=== PATIENT | female | born 1945 | race African-American/Black ===

== ENCOUNTER 2017-02-15 09:22 | Observation (INO) ==
[2017-02-15] MEDS ORDERED: BISACODYL 5 MG TABLET PO ONE (12:00)
[2017-02-15] MEDS ORDERED: ACETAMINOPHEN 325 MG TABLET PO PRN (12:21)
[2017-02-15] MEDS ORDERED: ONDANSETRON 4 MG/2 ML VIAL IV PRN (12:21)
[2017-02-15] MEDS ORDERED: MAGNESIUM HYDROXIDE SUSP 30 ML UDCUP PO PRN (12:21)
--- NOTE | 2017-02-15 12:35 | Gastrointestinal H&P ---
<Tanya Shoemaker - Last Filed: 02/15/17 12:29> Assessment and Plan (1) History of colon cancer Status: Acute Assessment and plan: 02/15-patient with complicated medical history now being admitted for observation and colonoscopy preop, further complicated by no assistance at home. Began colonoscopy prep and plan to proceed with colonoscopy tomorrow morning. Plan an addendum to follow by Dr. Thayer. Current Visit: Yes History of Present Illness Chief complaint: Colon cancer screening, history of colorectal cancer History of present illness: Ms. Dariusz Anthony is a 71 year old female who is being admitted to the hospital for observation for preop for colonoscopy on tomorrow. Patient has a history of colorectal cancer in 1999 in which she underwent a right hemicolectomy by Dr. Pozo. Following surgery she also underwent chemotherapy treatments with Dr. Steinberg. Since her diagnosis and treatment, patient has had multiple repeat colonoscopies with the last colonoscopy in [address] Blanc in which at that time she had no new evidence of recurrent polyps or cancer. She is now being admitted for observation at this time for repeat colonoscopy screening and preoperative measures due to complicated past medical history and increased risk factors with outpatient prep versus inpatient prep. Patient has a history of hypertension, bradycardia, mitral valve prolapse, and iron deficiency anemia. She lives alone and has no assistance available. Patient has no complaints at this time including denies abdominal pain, nausea, vomiting, recent weight loss. She denies any recent prior history of melena or hematochezia. She is not on any anticoagulation and takes aspirin daily. Home Medications Medication Instructions Recorded Confirmed Type Alendronate [Fosamax] 70 mg PO MO 01/31/17 02/15/17 History Aspirin [Ecotrin] 81 mg PO DAILY 01/31/17 01/31/17 History B1/B2/B3/B5/B6/Iron/Meth/Choln 15 ml PO DAILY 01/31/17 02/15/17 History [Geritol Tonic] Captopril 12.5 mg PO TID 01/31/17 01/31/17 History Latanoprost 0.005% Oph Soln 1 drop BOTH EYES BID 01/31/17 01/31/17 History [Xalatan 0.005% Oph Soln] Multivitamin [Multivitamins] 1 each PO DAILY 01/31/17 01/31/17 History Propranolol Tab [Inderal Tab] 10 mg PO BID 01/31/17 02/15/17 History Timolol Maleate [Timolol 0.5% Oph 1 drop BOTH EYES BID 02/15/17 02/15/17 History Soln] Allergies Allergy/AdvReac Type Severity Reaction Status Date / Time cephalexin [From Keflex] AdvReac Intermediate Swelling Verified 12/14/14 18:18 of Lip/Tongue/Throat Medical,Surgical,& Family Hx - Medical History Cardio: History of: Hypertension, Valvular Heart Disease (mitral valve prolapse) Other: History of: Miscellaneous Medical Problems (colon cancer--remission) - Social History Smoking Status: Never smoker 12 point system: reviewed and no additional remarkable complaints except as stated - Constitutional Constitutional: Present: as per HPI - EENT Eyes: Present: as per HPI Ears: Present: as per HPI Nose, mouth and throat: Present: as per HPI - Cardiovascular Cardiovascular: Present: as per HPI - Respiratory Respiratory: Present: as per HPI - Gastrointestinal Gastrointestinal: Present: as per HPI - Genitourinary Genitourinary: Present: as per HPI - Musculoskeletal Musculoskeletal: Present: as per HPI - Neurological Neurological: Present: as per HPI - Psychiatric Psychiatric: Present: as per HPI - Endocrine Endocrine: Present: as per HPI - Hematologic/Lymphatic Hematologic/Lymphatic: Present: as per HPI Exam - Constitutional General appearance: normal weight, no acute distress - Head Head exam: Present: normal inspection, normocephalic - Eye Eye exam: Present: other (Lids and conjunctive are unremarkable). Absent: scleral icterus - ENT ENT exam: Present: normal exam, normal oropharynx - Neck Neck exam: Present: normal inspection - Respiratory Respiratory exam: Present: clear to auscultation bilaterally. Absent: rales, rhonchi, wheezes - Cardiovascular Cardiovascular exam: Present: regular rate and rhythm. Absent: diastolic murmur , JVD, systolic murmur - GI/Abdominal GI/Abdominal exam: Present: normal bowel sounds, soft. Absent: ascites, distended, mass, organomegaly, tenderness - Extremities Exam Extremities exam: Present: normal inspection, full ROM - Back Exam Back exam: Present: normal inspection - Neurological Exam Neurological exam: Present: alert, oriented X3 - Psychiatric Psychiatric exam: Present: normal affect, normal mood - Skin Skin exam: Present: normal color, warm, dry Quality Measures - VTE Contraindication to Pharmacological VTE Prophylaxis: Clinical assessment deems Pt at low risk, no prophalaxis needed <Alvin Thayer - Last Filed: 02/15/17 18:33> History of Present Illness History of present illness: Ms. Dariusz Anthony is a 71 year old female Exam - Constitutional Vitals: Period Temp Pulse Resp BP Sys/Garduno Pulse Ox Last 24 Hr 96.9 F-97.7 F 50-67 12-18 134-162/68-78 96-98
[2017-02-15] MEDS ORDERED: POLYETHYLENE GLYCOL POWDER 255 GM BOTTLE PO ONE (13:30)
[2017-02-15] MEDS: CAPTOPRIL 6.25 MG TABLET PO SCH ×2 (14:16→20:49)
[2017-02-15] MEDS: PROPRANOLOL 10 MG TABLET PO SCH (20:49)
[2017-02-15] MEDS: LATANOPROST 0.005% OPH SOLN 2.5 ML BOTTLE BOTH EYES SCH (20:50)
[2017-02-15] MEDS ORDERED: MAGNESIUM CITRATE 300 ML BOTTLE PO ONE (21:00)
--- NOTE | 2017-02-16 07:17 | EKG Report ---
Stationary ECG Study [facility] Test Date: 02/16/2017 7:16:44 AM Pat Name: NESHA QUINTANILLA Department: Room: 417 Gender: F [employer]: NIURKA : 1945 Requested by: Ishmael Powers Order Number: [id number] Reading MD: BECKY PEREZ Intervals [place] Rate: 48 P: 56 WA: 167 QRS: 31 QRSD: 87 T: -2 QT: 451 QTc: 416 Interpretive Statements SINUS BRADYCARDIA NONSPECIFIC T-WAVE ABNORMALITY Electronically Signed On 02-17-17 08:07:44 CDT by BECKY PEREZ [email or web address]
[2017-02-16] MEDS ORDERED: ASPIRIN EC 81 MG TABLET PO SCH (09:00)
[2017-02-16] MEDS ORDERED: MULTIVITAMIN (BEROCCA) TABLET PO SCH (09:00)
[2017-02-16] MEDS: LATANOPROST 0.005% OPH SOLN 2.5 ML BOTTLE BOTH EYES SCH (10:02)
--- NOTE | 2017-02-16 10:29 | History and Physical Update ---
History and Physical Update - Physical Exam Mental Status: alert and oriented Heart: regular rate and rhythm Lung: clear to auscultation Abdomen: within normal limits Vitals: within normal limits
[2017-02-16] MEDS ORDERED: LIDOCAINE 2% 5 ML VIAL ONE (10:31)
[2017-02-16] MEDS ORDERED: PHENYLEPHRINE 1 MG/10 ML SYRINGE IV ONE (10:31)
[2017-02-16] MEDS ORDERED: PROPOFOL 200 MG/20 ML VIAL IV ONE (10:31)
--- NOTE | 2017-02-16 11:00 | Operative Note ---
Date of procedure: 02/16/17 Pre-op diagnosis: History of colon cancer and polyps Procedure: Colonoscopy with polypectomy 71-year-old female with history of colon cancer prior history of Polyps now for colonoscopy. Informed symptoms obtained the patient She was sedated with MAC anesthesia per anesthesia protocol. Patient placed left lateral decubitus position digital exam is normal the Olympus flexible video colonoscope was inserted into the anal canal and advanced to the level of the ileocolonic anastomosis. Findings: Withdrawal time 9 minutes Prep fair Ileocolonic anastomosis-normal Transverse colon polyps 3 each measuring 4-5 mm hot biopsy fulgurated Descending colon-polyp 1 6 mm hot biopsy fulgurated. Mild diverticulosis Sigmoid colon-polyp 1 5 mm hot biopsy fulgurated moderate diverticulosis Rectum-normal to direct retroflexed views. The procedure was terminated placed our procedure well she is discharged recovery in good condition Postop diagnosis: 1. Colon ybkzkb-exlget-lg polyp path repeat C scope in 3 years 2. Diverticulosis-maintain adequate fiber and fluid intake. Anesthesia: MAC Surgeon / Physician: Alvin Thayer Estimated blood loss: none Specimens: other (1. Transverse polyp #2 descending polyp) Condition: stable Disposition: post procedure unit Discharge Plan - Discharge Medications No Action Latanoprost 0.005% Oph Soln [Xalatan 0.005% Oph Soln] 1 drop BOTH EYES BID B1/B2/B3/B5/B6/Iron/Meth/Choln [Geritol Tonic] 15 ml PO DAILY Propranolol Tab [Inderal Tab] 10 mg PO BID Multivitamin [Multivitamins] 1 each PO DAILY Captopril 12.5 mg PO TID Alendronate [Fosamax] 70 mg PO MO Aspirin [Ecotrin] 81 mg PO DAILY Timolol Maleate [Timolol 0.5% Oph Soln] 1 drop BOTH EYES BID - Follow Up or Referral - Forms/Instructions
--- NOTE | 2017-02-16 11:05 | Anesthesia Post-Op ---
Anesthesia Post OP - Post Ansesthetic Evaluation Patient seen in post op: Yes Resp: within normal limits CV: within normal limits (bradycardia.) Mental: within normal limits (awakens to verbal stimuli) Temp: within normal limits Tdma-[id number]-Kfxgdhfcd: within normal limits Nausea and Vomiting: within normal limits Pain: within normal limits
[2017-02-16] MEDS: CAPTOPRIL 6.25 MG TABLET PO SCH (11:45)
[2017-02-16] MEDS: PROPRANOLOL 10 MG TABLET PO SCH (11:45)
--- NOTE | 2017-02-16 12:33 | Discharge Summary ---
Hospital Course - Hospital Course Hospital Course: Ms Arzola was admitted on yesterday due to the complex nature of her past medical history of pre-op and prep for colonoscopy on today. Pt has a history of colorectal cancer and was due for her routine colon screening. She was able to tolerate her prep well overnight and proceeded with colonoscopy today. Findings of colonoscopy noted to show colon polyps with pathology pending and diverticulosis with no other abnormal findings at this time. She is ready for discharge home and to return in three years for followup colon screening. We will notify her of her pathology report when it is returned. Diagnosis - Discharge Diagnosis (1) History of colon cancer Status: Acute Discharge Plan - Discharge Data Disposition: Disch To Home/Self Care Condition at Discharge: Stable Discharge Diet: advance to your usual diet Activity: resume usual activities as tolerated Hygiene: no restrictions Weight Bearing at Discharge: full weight bearing Driving: no restrictions (No f/u appt needed.) - Discharge Medications No Action Latanoprost 0.005% Oph Soln [Xalatan 0.005% Oph Soln] 1 drop BOTH EYES BID B1/B2/B3/B5/B6/Iron/Meth/Choln [Geritol Tonic] 15 ml PO DAILY Propranolol Tab [Inderal Tab] 10 mg PO BID Multivitamin [Multivitamins] 1 each PO DAILY Captopril 12.5 mg PO TID Alendronate [Fosamax] 70 mg PO MO Aspirin [Ecotrin] 81 mg PO DAILY Timolol Maleate [Timolol 0.5% Oph Soln] 1 drop BOTH EYES BID - Follow Up or Referral - Forms/Instructions Instructions: Colonoscopy (DC) Exam - Constitutional Vitals: Period Temp Pulse Resp BP Sys/Garduno Pulse Ox Last 24 Hr 97.0 F-97.7 F 46-63 15-20 94-155/50-87 96-100 General appearance: normal weight, no acute distress - Head Head exam: Present: normal inspection, normocephalic - Eye Eye exam: Present: other (lids and conjunctiva unremarkable). Absent: scleral icterus - ENT ENT exam: Present: normal exam, normal oropharynx - Neck Neck exam: Present: normal inspection - Respiratory Respiratory exam: Present: clear to auscultation bilaterally. Absent: rales, rhonchi, wheezes - Cardiovascular Cardiovascular exam: Present: regular rate and rhythm. Absent: diastolic murmur , JVD, systolic murmur - GI/Abdominal GI/Abdominal exam: Present: normal bowel sounds, soft. Absent: ascites, distended, mass, organomegaly, tenderness - Extremities Exam Extremities exam: Present: normal inspection, full ROM - Back Exam Back exam: Present: normal inspection - Neurological Exam Neurological exam: Present: alert, oriented X3 - Psychiatric Psychiatric exam: Present: normal affect, normal mood - Skin Skin exam: Present: normal color, warm, dry DS: Provider Date of admission: 02/15/17 12:21 Primary care physician: . No PCP Attending physician on admission: Alvin Thayer MD Discharging clinician: Prabhjot Cole Expected date of discharge: 02/16/17
[2017-02-16 12:38] VITALS: BP 118/56
--- NOTE | 2017-02-17 11:26 | Pathology Report from [facility] ---
[facility] ACCESSION # : [id number] PATIENT NAME : Nesha Hurt ORDERING DR : YADIRA XIONG MD CLINICAL HX: History rectal cancer POST-OP DX: Colon polyp SPECIMEN INFO: #1 Transverse colon polyps x 3 #2 Descending colon polyp GROSS DESCRIPTION: #1 Received in formalin labeled with the patients name NESHA JOSEPH and #1 consists of three parr mucosal tissue fragments collectively measuring 1.0 x 0.3 cm. Submitted in cassette #1.#2 Received in formalin labeled with the patients name NESHA JOSEPH and #2 consists of an aggregate of parr mucosal tissue measuring 0.8 x 0.5 cm. Submitted in cassette #2. DIAGNOSIS FOR NESHA JOSEPH: #1 TRANSVERSE COLON POLYPS x 3: Tubular adenomas and hyperplastic polyp.#2 DESCENDING COLON POLYP: Tubular adenoma. COLLECTED DATE: 02/16/2017 [facility] REPORT DATE: 02/17/2017 ELECTRONICALLY SIGNED BY: Elijah Neal M.D. 02/17/2017 - 9:54:54 [email or web address]
== END 2017-02-16 14:15 | disposition home or self-care (01) ==
LOC: N.4E 09:22 → N.GILAB 09:22 → N.4E 09:27
PROVIDERS: ADMIT Internal Medicine Gastroenterology; ATTEND Internal Medicine Gastroenterology